=== PATIENT | female | born 1995 | race Caucasian/White ===

== ENCOUNTER 2019-01-02 22:55 | Emergency (ER) | payer MEDICAID ==
[2019-01-02 22:56] VITALS: BMI 18.3
[2019-01-02 23:40] VITALS: RESP 18; O2SAT 100
[2019-01-02] MEDS ORDERED: Sodium Chloride 0.9% 1,000 ML IV STA (23:41)
[2019-01-02] MEDS ORDERED: DiphenhydrAMINE 50 mg/ml Inj IVP STA (23:41)
[2019-01-03 00:36] LABS: BASO % 0.3 % (0.0-2.0); EOS # 0.1 K/uL (0.0-0.7); EOS % 0.9 % (0.0-4.0); HEMOGLOBIN 13.1 g/dL (12.0-16.0); LYMPH # 2.2 K/uL (1.0-4.3); LYMPH % 14.1 % (20.0-40.0); MEAN CELL VOLUME 86.2 fl (81.0-99.0); MEAN CORPUSCULAR HEMOGLOBIN 28.6 pg (27.0-31.0); MEAN CORPUSCULAR HGB CONC 33.2 g/dL (33.0-37.0); MEAN PLATELET VOLUME 7.4 fl (7.2-11.7); MONO # 1.5 K/uL (0.0-0.8); MONO % 9.7 % (0.0-10.0); NEUT # 11.9 K/uL (1.8-7.0); NRBC % 0.1 % (0.0-0.0); RBC 4.57 Mil/uL (3.80-5.20); RED CELL DISTRIBUTION WIDTH 13.5 % (11.5-14.5); WHITE BLOOD COUNT 15.8 K/uL (4.8-10.8)
[2019-01-03] MEDS ORDERED: DiphenhydrAMINE 50 mg/ml Inj ONE (00:41)
[2019-01-03 00:45] LABS: ALB/GLOB RATIO 1.3 (1.0-2.1); ALBUMIN 3.6 g/dL (3.5-5.0); ALT/SGPT 89 U/L (9-52); AST/SGOT 312 U/L (14-36); BLOOD UREA NITROGEN 9 mg/dl (7-17); CALCIUM 9.1 mg/dL (8.4-10.2); GFR NON-AFRICAN AMERICAN > 60
--- NOTE | 2019-01-03 02:36 | ED PDOC ---
Syncope/Near Syncope/Dizziness Time Seen by Provider: 01/02/19 23:20 Chief Complaint (Nursing): Syncope Chief Complaint (Provider): Syncope History Per: Patient History/Exam Limitations: no limitations Onset/Duration Of Symptoms: Hrs Number Of Syncopal Episodes: 1 Additional Complaint(s): 23 y/o female presents to the ED complaining of rash and syncopal event. Patient states that yesterday she developed pruritic rash throughout her body. Symptoms resolved after taking Benadryl however, later while taking a walk today rash returned and became worse. Patient states she went home to call a taxi to come to the ED but she began to feel very weak and states she fainted. Patient reports she struck the right side of her head against the chair. 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 Denies neck injury, neck pain, numbness, tingling, nausea, vomiting, abdominal pain, shortness of breath, or throat swelling. Past Medical History Reviewed: Historical Data, Nursing Documentation, Vital Signs Vital Signs: Last Vital Signs Temp 99.1 F 01/02/19 23:03 Pulse 85 01/03/19 00:52 Resp 18 01/03/19 00:52 BP 99/65 L 01/03/19 00:52 Pulse Ox 100 01/03/19 00:52 - Medical History PMH: Anxiety, Asthma, Depression ("all my life"), Pneumonia Denies: Bipolar Disorder, Diabetes, Hepatitis, HIV, HTN, Personality Disorder, Chronic Kidney Disease, Schizophrenia, Seizures, Sexually Transmitted Disease - Surgical History Surgical History: Appendectomy - Family History Family History: States: Unknown Family Hx - Home Medications Home Medications: Ambulatory Orders Medication Instructions Recorded Albuterol Sulfate [Ventolin Hfa] 2 puff IH Q6 PRN 12/01/18 Metoclopramide HCl [Reglan] 10 mg PO Q8 10 Days #30 tablet 12/03/18 Omeprazole 40 mg PO DAILY #20 tab 12/03/18 DiphenhydrAMINE [Benadryl] 50 mg PO Q6 PRN #12 cap 01/03/19 Epinephrine HCl [Epipen 0.3 mg IM ONCE PRN #1 each 01/03/19 Auto-Injector] Methylprednisolone [Medrol Dose 4 mg PO DAILY #21 mg 01/03/19 Pack (21 tabs)] - Allergies Allergies/Adverse Reactions: Allergies Allergy/AdvReac Type Severity Reaction Status Date / Time celery Allergy ANAPHYLAXIS Verified 01/02/19 23:40 dog dander Allergy RASH Verified 01/02/19 23:40 lemon Allergy ANAPHYLAXIS Verified 01/02/19 23:40 shellfish derived Allergy ANAPHYLAXIS Verified 12/01/18 09:33 Review of Systems ROS Statement: Except As Marked, All Systems Reviewed And Found Negative Constitutional: Positive for: Weakness ENT: Negative for: Throat Pain Respiratory: Negative for: Shortness of Breath Gastrointestinal: Negative for: Nausea, Vomiting, Abdominal Pain Musculoskeletal: Negative for: Neck Pain Skin: Positive for: Rash Neurological: Positive for: Other (syncope) Physical Exam - Reviewed Nursing Documentation Reviewed: Yes Vital Signs Reviewed: Yes - Physical Exam Appears: Positive for: Well, Non-toxic, No Acute Distress Head Exam: Positive for: ATRAUMATIC, NORMAL INSPECTION, NORMOCEPHALIC Skin: Positive for: Rash (scattered urticaria with blanching) Eye Exam: Positive for: EOMI, Normal appearance, PERRL ENT: Positive for: Normal ENT Inspection Neck: Positive for: Normal, Painless ROM Cardiovascular/Chest: Positive for: Regular Rate, Rhythm. Negative for: Murmur Respiratory: Positive for: Normal Breath Sounds. Negative for: Respiratory Distress Gastrointestinal/Abdominal: Positive for: Normal Exam, Soft. Negative for: Tenderness Back: Positive for: Normal Inspection Extremity: Positive for: Normal ROM. Negative for: Pedal Edema, Deformity (x) Neurological/Psych: Positive for: Awake, Alert, Normal Tone, Oriented (x3). Negative for: Motor/Sensory Deficits - Laboratory Results Result Diagrams: 01/03/19 00:32 01/03/19 00:32 Lab Results: Total Bilirubin 0.2 mg/dl (0.2-1.3) 01/03/19 00:32 AST 312 U/L (14-36) H D 01/03/19 00:32 ALT 89 U/L (9-52) H D 01/03/19 00:32 Alkaline Phosphatase 57 U/L (38-126) 01/03/19 00:32 Total Protein 6.4 G/DL (6.3-8.2) 01/03/19 00:32 Albumin 3.6 g/dL (3.5-5.0) 01/03/19 00:32 Globulin 2.8 gm/dL (2.2-3.9) 01/03/19 00:32 Albumin/Globulin Ratio 1.3 (1.0-2.1) 01/03/19 00:32 - ECG O2 Sat by Pulse Oximetry: 100 (RA) Pulse Ox Interpretation: Normal Medical Decision Making Medical Decision Making: Time: 23:40 Initial Impression: Rash and syncope Initial Plan: * CT Head * Labs * Benadryl * IV Fluids * Pepcid * Solumedrol * Tylenol 02:15 CT Head Normal size of the ventricles and extra-axial spaces for the patient's age. Normal white matter tracts of the supratentorial brain. Normal basal ganglia and thalami. Normal brainstem. Normal cerebellum. There is no demonstrated extra-axial, intraparenchymal, or intraventricular hemorrhage. There are no findings of an acute ischemic infarction. Normal calvarium. There is no demonstrated fracture. Normal soft tissue structures. Normal visualized paranasal sinuses. IMPRESSION: Normal unenhanced CT scan of the brain. On re-evaluation, pt. sleeping comfortably easily arousable. Reports itching and rash have resolved. States she is feeling much better. Informed of results. Advised to f/u with PMD regarding elevated LFT's and for further evaluation but is to return to ED immediately if symptoms worsen. ---- Scribe Attestation: Documented by Ward Gomez, acting as a scribe Steven Parr PA-C Provider Scribe Attestation: All medical record entries made by the Scribe were at my direction and personally dictated by me. I have reviewed the chart and agree that the record accurately reflects my personal performance of the history, physical exam, medical decision making, and the department course for this patient. I have also personally directed, reviewed, and agree with the discharge instructions and disposition Disposition - Clinical Impression Clinical Impression: Syncope, Head injury, Urticaria - Patient ED Disposition Is Patient to be Admitted: No - Disposition Referrals: [facility] [Outside] Disposition: Routine/Home Disposition Time: 03:15 Condition: IMPROVED Additional Instructions: FOLLOW UP WITH YOUR DOCTOR FOR FURTHER EVALUATION RETURN TO ED IMMEDIATELY IF SYMPTOMS WORSEN LANG LOPEZ, thank you for letting us take care of you today. Your provider was Radha Atkinson MD and you were treated for SYNCOPAL EPISODE. The emergency medical care you received today was directed at your acute symptoms. If you were prescribed any medication, please fill it and take as directed. It may take several days for your symptoms to resolve. Return to the Emergency Department if your symptoms worsen, do not improve, or if you have any other problems. Please contact your doctor or call one of the physicians/clinics you have been referred to that are listed on the Patient Visit Information form that is included in your discharge packet. Bring any paperwork you were given at discharge with you along with any medications you are taking to your follow up visit. Our treatment cannot replace ongoing medical care by a primary care provider outside of the emergency department. Thank you for allowing the [facility] team to be part of your care today. If you had an X-Ray or CT scan: A Radiologist will review the ED reading if any change in treatment is needed we will contact you. If you had a blood, urine, or wound culture: It will take several days for the results, if any change in treatment is needed we will contact you. If you had an STI test: It will take 48 hours for the results. Please call after 1 week if you have not heard back. Prescriptions: DiphenhydrAMINE [Benadryl] 50 mg PO Q6 PRN #12 cap PRN Reason: itching or rash Epinephrine HCl [Epipen Auto-Injector] 0.3 mg IM ONCE PRN #1 each PRN Reason: Anaphylaxis Methylprednisolone [Medrol Dose Pack (21 tabs)] 4 mg PO DAILY #21 mg Instructions: Closed Head Injury (DC), Hives (DC), Syncope (Fainting) (DC) Forms: [facility] ([place] Citizen)
[2019-01-03 03:17] VITALS: BP 107/71; PULSE 66; TEMP 98
--- NOTE | 2019-01-03 09:05 | CARD ---
APPROVED REPORT Date of service: 01/02/2019 EKG Measurement Heart [id number] <Conclusion> Normal sinus rhythm Normal ECG
--- NOTE | 2019-01-03 11:57 | CT ---
Date of service: 01/03/2019 PROCEDURE: CT HEAD WITHOUT CONTRAST. HISTORY: head injury, syncope COMPARISON: 05/05/2014 TECHNIQUE: Axial computed tomography images were obtained through the head/brain without intravenous contrast. Supplemental Coronal and Sagittal projections created and reviewed. Radiation dose: Total exam DLP = 787.57 mGy-cm. This CT exam was performed using one or more of the following dose reduction techniques: Automated exposure control, adjustment of the mA and/or kV according to patient size, and/or use of iterative reconstruction technique. FINDINGS: HEMORRHAGE: No intracranial hemorrhage. BRAIN: No mass effect or edema. No atrophy or chronic microvascular ischemic changes. VENTRICLES: Unremarkable. No hydrocephalus. CALVARIUM: Unremarkable. PARANASAL SINUSES: Unremarkable as visualized. No significant inflammatory changes. MASTOID AIR CELLS: Unremarkable as visualized. No inflammatory changes. OTHER FINDINGS: None. IMPRESSION: No acute intracranial abnormalities. No significant findings to account for the clinical presentation. No significant interval change compared to the prior examination(s). Concordant results (preliminary interpretation) provided by [facility]. Procedure Completed: 01:02 Preliminary Report: Interpreted and electronically signed: 02:15. Final Interpretation: 11:53.
== END 2019-01-03 03:20 | disposition home or self-care (01) ==
LOC: H.ER 22:55
DX: R55 Syncope and collapse (principal); S09.90XA Unspecified injury of head, initial encounter; L50.9 Urticaria, unspecified; Z86.59 Personal history of other mental and behavioral disorders; J45.909 Unspecified asthma, uncomplicated
CPT/HCPCS: 70450; 80053; 81025; 82948; 85025; 93005; 96361; 96374; 96375; 99285; J1200; J2930; J7030

== ENCOUNTER 2019-01-13 12:23 | Emergency (ER) | payer MEDICAID ==
[2019-01-13 12:23] VITALS: BMI 18.3
[2019-01-13 13:09] VITALS: BP 136/94; PULSE 141; RESP 16; TEMP 97; O2SAT 100
--- NOTE | 2019-01-13 14:20 | ED PDOC ---
HPI: Psych/Substance Abuse Time Seen by Provider: 01/13/19 13:34 Chief Complaint (Nursing): Psychiatric Evaluation Chief Complaint (Provider): Psychiatric Evaluation History Per: Patient History/Exam Limitations: no limitations Onset/Duration Of Symptoms: Days (a couple months) Current Symptoms Are (Timing): Still Present Additional Complaint(s): 23 year old female presents to the ED seeking help to arrange an outpatient appointment at the [facility]. Patient states she feels stuck in her life lately after someone important to her left recently, and she wants to become more self-sufficient. She notes feeling anxious about moving forward, and wants to do so in the right way, so tried seeking help at the [facility] today, but they told her they would not be able to fit her in until the end of February. They encouraged her to come to the ED to obtain a sooner appointment. Otherwise, patient has been eating/sleeping well, and denies alcohol use, feeling depressed, suicidal ideation, homicidal ideation, and states she stopped smoking marijuana two months ago. Has no physical complaints. PMD: none provided Past Medical History Reviewed: Historical Data, Nursing Documentation, Vital Signs Vital Signs: Last Vital Signs Temp 97 F L 01/13/19 13:07 Pulse 141 H 01/13/19 13:07 Resp 16 01/13/19 13:07 BP 136/94 H 01/13/19 13:07 Pulse Ox 100 01/13/19 13:07 - Medical History PMH: Anxiety, Asthma, Depression ("all my life"), Pneumonia Denies: Bipolar Disorder, Diabetes, Hepatitis, HIV, HTN, Personality Disorder, Chronic Kidney Disease, Schizophrenia, Seizures, Sexually Transmitted Disease - Surgical History Surgical History: Appendectomy - Family History Family History: States: Unknown Family Hx - Social History Current smoker - smoking cessation education provided: No Alcohol: None Drugs: Denies, Cannabis (stopped smoking 2 months ago) - Home Medications Home Medications: Ambulatory Orders Medication Instructions Recorded Albuterol Sulfate [Ventolin Hfa] 2 puff IH Q6 PRN 12/01/18 Metoclopramide HCl [Reglan] 10 mg PO Q8 10 Days #30 tablet 12/03/18 Omeprazole 40 mg PO DAILY #20 tab 12/03/18 DiphenhydrAMINE [Benadryl] 50 mg PO Q6 PRN #12 cap 01/03/19 Epinephrine HCl [Epipen 0.3 mg IM ONCE PRN #1 each 01/03/19 Auto-Injector] Methylprednisolone [Medrol Dose 4 mg PO DAILY #21 mg 01/03/19 Pack (21 tabs)] - Allergies Allergies/Adverse Reactions: Allergies Allergy/AdvReac Type Severity Reaction Status Date / Time celery Allergy ANAPHYLAXIS Verified 01/02/19 23:40 dog dander Allergy RASH Verified 01/02/19 23:40 lemon Allergy ANAPHYLAXIS Verified 01/02/19 23:40 shellfish derived Allergy ANAPHYLAXIS Verified 12/01/18 09:33 Review of Systems ROS Statement: Except As Marked, All Systems Reviewed And Found Negative Psych: Positive for: Anxiety. Negative for: Depression, Suicidal ideation (or homicidal ideation) Physical Exam - Reviewed Nursing Documentation Reviewed: Yes Vital Signs Reviewed: Yes - Physical Exam Appears: Positive for: No Acute Distress Head Exam: Positive for: ATRAUMATIC, NORMAL INSPECTION, NORMOCEPHALIC Skin: Positive for: Normal Color, Warm. Negative for: Rash Eye Exam: Positive for: Normal appearance, EOMI, PERRL Neck: Positive for: Normal, Painless ROM, Supple Cardiovascular/Chest: Positive for: Regular Rate, Rhythm Respiratory: Positive for: Normal Breath Sounds. Negative for: Respiratory Distress Gastrointestinal/Abdominal: Positive for: Normal Exam, Soft. Negative for: Tenderness Back: Positive for: Normal Inspection Extremity: Positive for: Normal ROM (all extremities) Neurological/Psych: Positive for: Awake, Alert, Normal Tone, Oriented (x3), Mood/Affect (tearful, but otherwise pleasant and cooperative), Gait (steady, unassisted), Other (good eye contact maintained while speaking). Negative for: Motor/Sensory Deficits - ECG O2 Sat by Pulse Oximetry: 100 (RA) Pulse Ox Interpretation: Normal Medical Decision Making Medical Decision Making: Time: 1340 Initial Impression: psychiatric evaluation Initial Plan: --Patient referred to crisis 1515 Patient stable for discharge as per crisis who set up outpatient follow up for patient at [facility]. DX: ANXIETY, DEPRESSION BY DR. SNELL. Scribe Attestation: Documented by Kellie Mejía, acting as a scribe for Stephania FELISA Higgins. Provider Scribe Attestation: All medical record entries made by the Scribe were at my direction and personally dictated by me. I have reviewed the chart and agree that the record accurately reflects my personal performance of the history, physical exam, medical decision making, and the department course for this patient. I have also personally directed, reviewed, and agree with the discharge instructions and disposition. Disposition - Clinical Impression Clinical Impression: Depression, Anxiety - Patient ED Disposition Is Patient to be Admitted: No Counseled Patient/Family Regarding: Diagnosis, Rx Given - Disposition Referrals: [facility] [Outside] Disposition: Routine/Home Disposition Time: 15:19 Condition: STABLE Additional Instructions: APPOINTMENT TO [facility] ON Instructions: Depression, Anxiety, Adult (DC), Tips for How to Help Your Mood Print Language: CYPRIOT - POA Present On Arrival: None
== END 2019-01-13 15:29 | disposition home or self-care (01) ==
LOC: H.ER 12:23
DX: F32.9 Major depressive disorder, single episode, unspecified (principal); F41.9 Anxiety disorder, unspecified